=== PATIENT | female | born 1995 | race African-American/Black ===

== ENCOUNTER 2017-06-27 11:47 | Emergency (ER) | payer MEDICAID ==
[~2017-06-27] VITALS: Ht 182.9 cm; Wt 117.9 kg
[2017-06-27 13:47] LABS: CALCIUM 9.1 mg/dL (8.5-10.1); CARBON DIOXIDE 24.5 mmol/L (21-32); CHLORIDE SERUM 101 mmol/L (98-107); CREATININE SERUM 0.7 mg/dL (0.6-1.0); GFR1 > 60 mL/min; GLUCOSE SERUM 105 mg/dL (74-106); POTASSIUM SERUM 3.3 mmol/L (3.5-5.1); SODIUM SERUM 135 mmol/L (136-145)
[2017-06-27 14:46] VITALS: BP 137/84
== END 2017-06-27 14:46 | disposition home or self-care (01) ==
LOC: ED 11:47
PROVIDERS: Emergency Medicine
DX: N39.0 Urinary tract infection, site not specified (principal); M79.1 Myalgia; R03.0 Elevated blood-pressure reading, without diagnosis of hypertension
CPT/HCPCS: 36415; J1885

== ENCOUNTER 2018-04-21 22:01 | Emergency (ER) | payer MEDICAID ==
[~2018-04-21] VITALS: Ht 182.9 cm; Wt 117.9 kg
[2018-04-21 22:07] VITALS: Ht 182.9 cm; Wt 117.9 kg
[2018-04-21 23:20] LABS: BASOPHIL % 0.3 % (0-2); PLATELET COUNT 343 x10^3mcL (130-400); RED CELL DISTRIBUTION WIDTH 16.9 % (11.5-14.5)
[2018-04-21 23:24] LABS: CARBON DIOXIDE 25.3 mmol/L (21-32); CHLORIDE SERUM 103 mmol/L (98-107); GFR1 > 60 mL/min; GLUCOSE SERUM 92 mg/dL (74-106); POTASSIUM SERUM 3.4 mmol/L (3.5-5.1); SODIUM SERUM 140 mmol/L (136-145)
[2018-04-21 23:29] LABS: ALBUMIN 3.7 g/dL (3.4-5.0); ALKALINE PHOSPHATASE 48 U/L (46-116); ALT/SGPT 14 U/L (14-59); AST/SGOT 11 U/L (15-37); BILIRUBIN TOTAL 0.25 mg/dL (0.20-1.00)
[2018-04-22 00:08] VITALS: BP 148/88
== END 2018-04-22 00:08 | disposition home or self-care (01) ==
LOC: ED 22:01
PROVIDERS: Emergency Medicine
DX: R56.9 Unspecified convulsions (principal); N39.0 Urinary tract infection, site not specified
CPT/HCPCS: 36415; Q0162